=== PATIENT | female | born 1975 | race Hispanic/Latino ===

== ENCOUNTER 2018-03-25 13:46 | Emergency (ER) | payer OTHER ==
[2018-03-25 15:12] LABS: Absolute Lymphocytes (CBC) 2.5 K/uL (0.7-4.9); Absolute Monocytes 0.7 K/uL (0.1-1.3); Absolute Neutrophil 6.6 K/uL (1.8-8.0); Basophils % 0.5 % (0-1.3); Eosinophils % 1.8 % (0-4.4); Hematocrit 41.4 % (36.0-45.0); Lymphocytes % 25.2 % (15.3-44.8); MCH 30.2 pg (27.0-35.0); MCV 89.5 fL (80-100); MPV 7.3 fL (7.6-11.3); Monocytes % 6.6 % (3.3-12.3); RBC Red Blood Cell Count 4.62 M/uL (3.86-4.86)
[2018-03-25 15:22] LABS: Albumin 4.2 g/dL (3.4-5.0); Bilirubin Direct 0.2 mg/dL (0-0.2); Bilirubin Total 0.8 mg/dL (0.2-1.0); Potassium 3.8 mmol/L (3.5-5.1); Protein, Total 8.4 g/dL (6.4-8.2)
[2018-03-25 15:24] LABS: Urine Blood NEGATIVE (NEG); Urine Glucose NEGATIVE (NEG); Urine Protein NEGATIVE (NEG)
--- NOTE | 2018-03-25 17:24 | RAD REPORT ---
EXAM DESCRIPTION: CTAbdomen Pelvis W Contrast - 03/25/2018 5:14 pm CLINICAL HISTORY: Abdominal pain. RLQ pain;Abd pain COMPARISON: No comparisons TECHNIQUE: Biphasic CT imaging of the abdomen and pelvis was performed with 100 ml non-ionic IV cont rast. All CT scans are performed using dose optimization technique as appropriate and may include automated exposure control or mA/KV adjustment according to patient size. FINDINGS: The lung bases are clear.Small hiatal hernia. The liver, spleen, pancreas, adrenal glands and kidneys are within normal limits. No bowel obstruction, free air, free fluid or abscess. The appendix is normal. No evidence of signi ficant lymphadenopathy. No suspicious bony findings. IMPRESSION: No acute intra-abdominal or pelvic finding.
--- NOTE | 2018-03-25 17:53 | EDPHYS ---
Physician Documentation [facility] Name: Claudine Lerner Age: 42 yrs Sex: Female : 1975 Arrival Date: 03/25/2018 Time: 13:49 Bed 3 Private MD: None, None ED Physician Edil Louise HPI: 03/25 15:07 This 42 yrs old Female presents to ER via Ambulatory with complaints of rn Abdominal Pain. 15:07 The patient presents with abdominal pain right lower quadrant. Onset: The rn symptoms/episode began/occurred today. The symptoms do not radiate. Associated signs and symptoms: Pertinent positives: nausea, Pertinent negatives: blood in stools, chest pain, dysuria, fever, shortness of breath, vaginal discharge, vomiting, vomiting blood. Modifying factors: The symptoms are alleviated by nothing, the symptoms are aggravated by movement, touching the area. Severity of pain: At its worst the pain was moderate in the emergency department the pain has improved. The patient has not experienced similar symptoms in the past. REports acute onset RLQ pain, began today, moderate when started, improved now, + nausea, no fever/diarrhea, hurts to move and change position.. 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 - Social history:: Smoking status: Patient/guardian denies using tobacco. - Ebola Screening: : No symptoms or risks identified at this time. - Family history:: not pertinent. - Hospitalizations: : No recent hospitalization is reported. ROS: 15:07 Constitutional: Negative for fever, chills, and weight loss, Eyes: Negative for injury, rn pain, redness, and discharge, Neck: Negative for injury, pain, and swelling, Cardiovascular: Negative for chest pain, palpitations, and edema, Respiratory: Negative for shortness of breath, cough, wheezing, and pleuritic chest pain, Abdomen/GI: + abdominal pain and nausea Back: Negative for injury and pain, : Negative for injury, bleeding, discharge, and swelling, MS/Extremity: Negative for injury and deformity, Skin: Negative for injury, rash, and discoloration, Neuro: Negative for headache, weakness, numbness, tingling, and seizure. Exam: 15:07 Constitutional: This is a well developed, well nourished patient who is awake, alert, rn and in no acute distress. Head/Face: Normocephalic, atraumatic. Eyes: Pupils equal round and reactive to light, extra-ocular motions intact. Lids and lashes normal. Conjunctiva and sclera are non-icteric and not injected. Cornea within normal limits. Periorbital areas with no swelling, redness, or edema. ENT: MMM Abdomen/GI: soft, mild RLQ and suprapubic tenderness, no rebound Back: No spinal tenderness. No costovertebral tenderness. Full range of motion. Skin: Warm, dry with normal turgor. Normal color with no rashes, no lesions, and no evidence of cellulitis. MS/ Extremity: Pulses equal, no cyanosis. Neurovascular intact. Full, normal range of motion. Equal circumference. Neuro: Awake and alert, GCS 15, oriented to person, place, time, and situation. Cranial nerves II-XII grossly intact. Motor strength 5/5 in all extremities. Sensory grossly intact. Cerebellar exam normal. Normal gait. Vital Signs: 14:22 BP 131 / 91; Pulse 73; Resp 16 S; Temp 97.8(TE); Pulse Ox 96% on R/A; Weight 79.38 kg aa5 (R); Height 5 ft. 2 in. (157.48 cm) (R); Pain 2/10; 15:30 BP 108 / 82; Pulse 63; Resp 16 S; Pulse Ox 100% on R/A; jl7 14:22 Body Mass Index 32.01 (79.38 kg, 157.48 cm) aa5 MDM: 14:27 Patient medically screened. rn 17:52 Differential diagnosis: appendicitis, diverticulitis, non-specific abd pain, rn Ureterolithiasis, urinary tract infection. Data reviewed: vital signs, nurses notes, lab test result(s), radiologic studies, CT scan, and as a result, I will discharge patient. Counseling: I had a detailed discussion with the patient and/or guardian regarding: the historical points, exam findings, and any diagnostic results supporting the discharge/admit diagnosis, lab results, radiology results, the need for outpatient follow up, to return to the emergency department if symptoms worsen or persist or if there are any questions or concerns that arise at home. Special discussion: Based on the patient's Hx, exam, and Dx evaluation, there is no indication for emergent surgery or inpatient Tx. It is understood by the patient/guardian that if the Sx's persist or worsen they need to return immediately for re-evaluation. I discussed with the patient/guardian in detail that at this point there is no indication for admission to the hospital. It is understood, however, that if the symptoms persist or worsen the patient needs to return immediately for re-evaluation. 03/25 14:34 Order name: Basic Metabolic Panel; Complete Time: 15:31 rn 03/25 14:34 Order name: CBC with Diff; Complete Time: 15:31 rn 03/25 14:34 Order name: Creatinine for Radiology; Complete Time: 15:31 rn 03/25 14:34 Order name: Hepatic Function; Complete Time: 15:31 rn 03/25 14:34 Order name: Lipase; Complete Time: 15:31 rn 03/25 15:19 Order name: Urine Dipstick--Ancillary (enter results); Complete Time: 15:31 eb 03/25 14:34 Order name: IV Saline Lock; Complete Time: 14:52 rn 03/25 14:34 Order name: Labs collected and sent; Complete Time: 14:52 rn 03/25 14:34 Order name: CT Abd/Pelvis - W/Contrast; Complete Time: 17:30 rn 03/25 14:50 Order name: Urine Dipstick-Ancillary (obtain specimen); Complete Time: 14:50 sv 03/25 14:50 Order name: Urine Test (obtain specimen); Complete Time: 14:50 sv 03/25 15:19 Order name: Urine --Ancillary (enter results); Complete Time: 15:31 eb Administered Medications: No medications were administered Disposition: 03/25/18 17:52 Discharged to Home. Impression: Lower abdominal pain, unspecified. - Condition is Stable. - Discharge Instructions: Abdominal Pain, Adult. - Medication Reconciliation Form, Thank You Letter, Antibiotic Education, Prescription Opioid Use form. - Follow up: Private Physician; When: As needed; Reason: Recheck today's complaints, Re-evaluation by your physician. - Problem is new. - Symptoms have improved. Signatures: Dispatcher [employer] EDMS Jennifer, Amanda, RN Abraham Guzman RN Edil Mike MD MD rn Calderon, Audri, RN RN aa5 Corrections: (The following items were deleted from the chart) 15:09 15:07 Constitutional: Negative for fever, chills, and weight loss, Eyes: Negative for rn injury, pain, redness, and discharge, Neck: Negative for injury, pain, and swelling, Cardiovascular: Negative for chest pain, palpitations, and edema, Respiratory: Negative for shortness of breath, cough, wheezing, and pleuritic chest pain, Abdomen/GI: + abdominal pain and nausea MS/Extremity: Negative for injury and deformity, Skin: Negative for injury, rash, and discoloration, Neuro: Negative for headache, weakness, numbness, tingling, and seizure, rn 17:59 17:52 03/25/2018 17:52 Discharged to Home. Impression: Lower abdominal pain, sg unspecified. Condition is Stable. Forms are Medication Reconciliation Form, Thank You Letter, Antibiotic Education, Prescription Opioid Use. Follow up: Private Physician; When: As needed; Reason: Recheck today's complaints, Re-evaluation by your physician. Problem is new. Symptoms have improved. rn
--- NOTE | 2018-03-25 17:53 | ER ---
Nurse's Notes [facility] Name: Claudine Lerner Age: 42 yrs Sex: Female : 1975 Arrival Date: 03/25/2018 Time: 13:49 Bed 3 Private MD: None, None Diagnosis: Lower abdominal pain, unspecified Presentation: 03/25 14:21 Presenting complaint: Patient states: RLQ pain that began today around 1230. Pt denies aa5 N/V/D. Pt states "the pain started after I broke out in a cold sweat". 14:21 Transition of care: patient was not received from another setting of care. Onset of aa5 symptoms was March 25, 2018. Risk Assessment: Do you want to hurt yourself or someone else? Patient reports no desire to harm self or others. Initial Sepsis Screen: Does the patient meet any 2 criteria? No. Patient's initial sepsis screen is negative. Does the patient have a suspected source of infection? No. Patient's initial sepsis screen is negative. Care prior to arrival: None. 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 - Social history:: Smoking status: Patient/guardian denies using tobacco. - Ebola Screening: : No symptoms or risks identified at this time. - Family history:: not pertinent. - Hospitalizations: : No recent hospitalization is reported. Screenin:30 Abuse screen: Denies threats or abuse. Denies injuries from another. Nutritional jl7 screening: No deficits noted. Tuberculosis screening: No symptoms or risk factors identified. Fall Risk IV access (20 points). Assessment: 14:45 General: Appears in no apparent distress. uncomfortable, Behavior is calm, cooperative, jl7 appropriate for age. Pain: Complains of pain in right lower quadrant Pain does not radiate. Pain currently is 2 out of 10 on a pain scale. at worst was 8 out of 10 on a pain scale. Quality of pain is described as pressure, Is intermittent. Neuro: Level of Consciousness is awake, alert, obeys commands, Oriented to person, place, time, situation. Cardiovascular: Patient's skin is warm and dry. Respiratory: Airway is patent Respiratory effort is even, unlabored, Respiratory pattern is regular, symmetrical. GI: Bowel sounds present X 4 quads. hyperactive in right upper quadrant, left upper quadrant and left lower quadrant Abd is soft and non tender in right upper quadrant, left upper quadrant and left lower quadrant Abdomen is tender to palpation in right lower quadrant. : No signs and/or symptoms were reported regarding the genitourinary system. Denies burning with urination. Derm: Skin is pink, warm \\T\\ dry. 16:00 Reassessment: Patient appears in no apparent distress at this time. No changes from jl7 previously documented assessment. Patient and/or family updated on plan of care and expected duration. Pain level reassessed. Patient is alert, oriented x 3, equal unlabored respirations, skin warm/dry/pink. 17:00 Reassessment: No changes from previously documented assessment. Patient and/or family jl7 updated on plan of care and expected duration. Pain level reassessed. Patient is alert, oriented x 3, equal unlabored respirations, skin warm/dry/pink. Vital Signs: 14:22 BP 131 / 91; Pulse 73; Resp 16 S; Temp 97.8(TE); Pulse Ox 96% on R/A; Weight 79.38 kg aa5 (R); Height 5 ft. 2 in. (157.48 cm) (R); Pain 2/10; 15:30 BP 108 / 82; Pulse 63; Resp 16 S; Pulse Ox 100% on R/A; jl7 14:22 Body Mass Index 32.01 (79.38 kg, 157.48 cm) aa5 ED Course: 13:49 Patient arrived in ED. mr 13:50 None, None is Private Physician. mr 14:21 Arm band placed on Patient placed in an exam room, on a stretcher. aa5 14:27 Edil Louise MD is Attending Physician. rn 14:37 Triage completed. aa5 14:41 Rosie Soto RN is Primary Nurse. jl7 14:45 Initial lab(s) drawn, by ia, sent to lab. Urine collected: clean catch specimen, clear. jl7 Inserted saline lock: 20 gauge in right antecubital area, using aseptic technique. Blood collected. 15:30 Patient has correct armband on for positive identification. Bed in low position. Call jl7 light in reach. Side rails up X 1. Pulse ox on. NIBP on. Warm blanket given. 17:[address] mw3 17:14 CT completed. Patient tolerated procedure well. Patient moved back from CT. mw3 17:16 CT Abd/Pelvis - W/Contrast In Process Unspecified. EDMS Administered Medications: No medications were administered Outcome: 17:52 Discharge ordered by . rn 17:59 Patient left the ED. sg Signatures: Dispatcher [employer] EDMS Abraham Looney RN RN sg Sherrie Cabrera mr Edil Louise MD MD rn Calderon, Audri RN RN aa5 Rosie Soto RN RN jl7 Niya Capps mw3
== END 2018-03-25 17:59 | disposition home or self-care (01) ==
LOC: ER 13:46
DX: R10.31 Right lower quadrant pain (principal)
CPT/HCPCS: 36415; 74177; 80048; 80076; 81003; 81025; 83690; 85025; 99284; Q9967

== ENCOUNTER 2018-08-20 07:15 | Day surgery (SDC) | payer OTHER ==
--- NOTE | 2018-08-17 17:15 | EKG ---
Test Date: 2018-08-17 Test Time: 12:28:03 Cremator: GUALBERTO MEASUREMENT RESULTS: Intervals: Rate: 60 NE: 188 QRSD: 102 QT: 412 QTc: 412 [place]: P: 31 NE: 188 QRS: -22 T: -27 INTERPRETIVE STATEMENTS: Normal sinus rhythm T wave abnormality, consider anterior ischemia Abnormal ECG No previous ECG available for comparison Electronically Signed On 08-17-18 17:13:54 CDT by Jose D Solis
--- OUTSIDE RECORDS SUMMARY | 2018-08-20 07:20 | XMS REPORT ---
:1975 [facility] Address [address] [place] [address] Dr. Lopez [address] [place] [id number] Care Team Providers Name Role Phone Unavailable Unavailable Unavailable Problems This patient has no known problems. Allergies, Adverse Reactions, Alerts This patient has no known allergies or adverse reactions. Medications This patient has no known medications.
[2018-08-20] MEDS ORDERED: Ringers Lactate 1,000 ML IV ONE (07:53)
[2018-08-20] MEDS ORDERED: BUPIVACA 0.25%/EPI 0.0005% MDV 50 ML VIAL ONE (08:41)
[2018-08-20] MEDS: BUPIVACA 0.5%/EPI 0.0005%/PF 30 ML VIAL ONE ×2 (09:24→10:13)
[2018-08-20] MEDS ORDERED: LIDOCAINE 1% MPF 5 ML VIAL ONE (09:32)
[2018-08-20] MEDS ORDERED: FENTANYL CITR 100 MCG/2 ML ONE (09:32)
[2018-08-20] MEDS ORDERED: ROCURONIUM 50 MG/5 ML VIAL IV ONE (09:32)
[2018-08-20] MEDS ORDERED: MIDAZOLAM HCL 2 MG/2 ML INJ ONE ×2 (09:32→10:40)
[2018-08-20] MEDS ORDERED: PROPOFOL 200 MG/20 ML VIAL IV ONE (09:32)
[2018-08-20] MEDS ORDERED: DEXAMETHASONE 10 MG/ML VIAL ONE (10:02)
[2018-08-20] MEDS ORDERED: ONDANSETRON 4 MG/2 ML VIAL ONE ×2 (10:04→10:12)
[2018-08-20] MEDS ORDERED: GLYCOPYRROLATE 0.2 MG/ML SYR ONE ×2 (10:11→10:12)
[2018-08-20] MEDS ORDERED: NEOSTIGMINE 1 MG/ML -10 ML VIAL ONE (10:12)
[2018-08-20] MEDS ORDERED: KETOROLAC 30 MG/ML INJ ONE (10:12)
--- NOTE | 2018-08-20 10:19 | P.OP ---
Pre-Op Diagnosis: Recurrent acute tonsillitis, Chronic tonsillitis Post-Op Diagnosis: Recurrent acute tonsillitis, Chronic tonsillitis Procedure: Tonsillectomy Anesthesia: Other (GA via ETT) Fluids/ Blood products: Other (crystalloid 350ml) Estimated blood loss: Other (5ml) Specimen: Other (Both tonsils) Complications: None Implants: None Indication: Patient persistent issues in spite of good medical management. Details of Operation: The patient was brought to the operating room and placed under general anesthesia via endotracheal tube. The head of bed was turned 90 degrees. A Shoulder roll was placed and the neck extended. A head drape was applied. The McIvor mouth gag was placed and suspended from the Bro stand. The oxygen concentrate was confirmed with the automatic line set up mechanic and was less than forty percent. Weight-based dexamethasone was administered by the automatic line set up mechanic. The soft palate was palpated and there was no submucous cleft. A red rubber catheter was placed in the nose and secured to retract the soft palate. The tonsils were noted to be chronically inflammed and submucosa. The exposed of the inferior aspect of the tonsil was difficult due to the patient's small jaw. The left tonsil was grasped with a straight Allis clamp. The bovie electocautery was used to incision the mucosa over the anterior pillar and identify the tonsillar capsule. The tonsil was dissected using cautery and blunt dissection until free from soft tissue attachments. A tonsil ball was placed to aid hemostasis. The right tonsil was removed in a similar manner. The laryngeal mirror was used to visualize the nasopharynx. The adenoid size was minimal. The adenoids were not removed. Hemostasis was achieved using packing and cautery as needed. Blood loss was minimal. All packing was removed. The tonsillar fossae were injected with 0.5% Marcaine with epinephrine. A total of 2 mL was used. A Salum sump orogastric tube was used to decompress the stomach. The red rubber catheter was removed and used to suction the nasopharynx and nasal cavity. The mouth gag was removed; there was no evidence of injury to the lips, or teeth. There were some small superfical lacerations of the right tongue but bleeding was minimal and no repair was indicated. The mandible was mobile. Disposition: The patient was then awakened from anesthesia and taken to the recovery room in stable condition.
[2018-08-20] MEDS: MEPERIDINE HCL 25 MG/0.5 ML ONE ×2 (10:33→10:38)
[2018-08-20] MEDS: HYDROMORPHONE HCL 1 MG/ML INJ ONE ×2 (10:45→10:50)
== END 2018-08-20 11:55 | disposition home or self-care (01) ==
LOC: OR 07:15
PROVIDERS: ATTEND Otolaryngology
PROC: 0CTPXZZ Resection of Tonsils, External Approach (ICD-10-PCS; principal; 2018-08-20 09:15)
DX: J35.01 Chronic tonsillitis (principal); K21.9 Gastro-esophageal reflux disease without esophagitis; F32.9 Major depressive disorder, single episode, unspecified; F41.9 Anxiety disorder, unspecified; M79.7 Fibromyalgia; Z79.899 Other long term (current) drug therapy
CPT/HCPCS: 81025; 88304; 93005; J1100; J1170; J2175; J2250; J2405; J2704; J2710; J3010

== ENCOUNTER 2019-06-14 | Emergency (ER) | payer OTHER ==
--- OUTSIDE RECORDS SUMMARY | 2019-06-14 12:07 | XMS REPORT ---
:1975 [facility] Address [address] [place] [address] Dr. Lopez [address] [place] [id number] Care Team Providers Name Role Phone Unavailable Unavailable Unavailable Problems This patient has no known problems. Allergies, Adverse Reactions, Alerts This patient has no known allergies or adverse reactions. Medications This patient has no known medications.
--- NOTE | 2019-06-14 12:31 | ER ---
Nurse's Notes [facility] Name: Claudine Lerner Age: 44 yrs Sex: Female : 1975 Arrival Date: 06/14/2019 Time: 12:07 Bed 30 Private MD: Crispin Boggs E Diagnosis: Foreign body in right ear Presentation: 06/14 12:08 Presenting complaint: Patient states: foreign body in the right ear, got a piece of sv earring stuck in her ear. Transition of care: patient was not received from another setting of care. Onset of symptoms was June 13, 2019. Care prior to arrival: None. 12:08 Method Of Arrival: Ambulatory sv 12:08 Acuity: GUNNER 4 sv 12:28 Risk Assessment: Do you want to hurt yourself or someone else? Patient reports no mg2 desire to harm self or others. Initial Sepsis Screen: Does the patient meet any 2 criteria? No. Patient's initial sepsis screen is negative. Does the patient have a suspected source of infection? No. Patient's initial sepsis screen is negative. 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 - Social history:: Smoking status: unknown. - Ebola Screening: : No symptoms or risks identified at this time. Screenin:26 Abuse screen: Denies threats or abuse. Denies injuries from another. Nutritional mg2 screening: On. Tuberculosis screening: No symptoms or risk factors identified. Fall Risk None identified. Assessment: 12:25 General: Appears in no apparent distress. comfortable, Behavior is calm, cooperative. mg2 Pain: Complains of pain in right ear. Neuro: Level of Consciousness is awake, alert, obeys commands, Oriented to person, place, time, situation. Cardiovascular: Capillary refill < 3 seconds. Respiratory: Airway is patent Respiratory effort is even, unlabored, Respiratory pattern is regular, symmetrical. GI: : No signs and/or symptoms were reported regarding the genitourinary system. EENT: Ear canal w/ foreign body noted from right ear. Derm: No signs and/or symptoms reported regarding the dermatologic system. Musculoskeletal: No signs and/or symptoms reported regarding the musculoskeletal system. Vital Signs: 12:09 BP 114 / 79; Pulse 82; Resp 16; Temp 98; Pulse Ox 97% ; Weight 90.72 kg; Height 5 ft. 2 sv in. (157.48 cm); 12:09 Body Mass Index 36.58 (90.72 kg, 157.48 cm) sv ED Course: 12:07 Patient arrived in ED. ag5 12:07 Crispin Boggs MD is Private Physician. ag5 12:09 Triage completed. sv 12:10 Arm band placed on. sv 12:11 Francy Dan [facility]C [facility]. kb 12:11 Edil Louise MD is Attending Physician. kb 12:25 Cody Chowdhury, RN is Primary Nurse. mg2 12:26 Patient has correct armband on for positive identification. mg2 12:26 Assist provider with foreign body removal Patient tolerated poorly. patient unable to mg2 tolerate the pain while removing the foreign body. unsuccessful. to be referred to ENT specialist. Patient did not have IV access during this emergency room visit. 12:30 Amanda Vernon MD is Referral Physician. kb Administered Medications: No medications were administered Outcome: 12:30 Discharge ordered by MD. kb 12:34 Discharged to home ambulatory, with family, with friend. mg2 12:34 Condition: stable 12:34 Discharge instructions given to patient, family, Instructed on discharge instructions, follow up and referral plans. Demonstrated understanding of instructions, follow-up care. 12:35 Patient left the ED. mg2 Signatures: Francy Dan FNP-C FNP-Amanda Pham RN RN Cody Chowdhury RN RN [facility] [place] Espinoza ag5
--- NOTE | 2019-06-14 12:31 | EDPHYS ---
Physician Documentation [facility] Name: Claudine Lerner Age: 44 yrs Sex: Female : 1975 Arrival Date: 06/14/2019 Time: 12:07 Bed 30 Private MD: Crispin Boggs E ED Physician Edil Louise HPI: 06/14 12:30 This 44 yrs old Female presents to ER via Ambulatory with complaints of kb Foreign Body In Ear. 12:30 The patient or guardian reports the patient has a suspected foreign body, of the ear, kb on the right. The reported likely foreign body is clear, plastic earring back. Onset: The symptoms/episode began/occurred yesterday. Current symptoms: foreign body sensation. Treatment Prior to Arrival: tried to remove, and pushed further in. The patient has not experienced similar symptoms in the past. The patient has not recently seen a physician. Pt reports an earring back fell into right ear yesterday. States they tried to remove it last night and were unable. Believes they just pushed it further into the ear. . 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 - Social history:: Smoking status: unknown. - Ebola Screening: : No symptoms or risks identified at this time. ROS: 12:25 Constitutional: Negative for fever, chills, and weight loss, Neck: Negative for injury, kb pain, and swelling, Cardiovascular: Negative for chest pain, palpitations, and edema, Respiratory: Negative for shortness of breath, cough, wheezing, and pleuritic chest pain, Abdomen/GI: Negative for abdominal pain, nausea, vomiting, diarrhea, and constipation, MS/Extremity: Negative for injury and deformity, Skin: Negative for injury, rash, and discoloration, Neuro: Negative for headache, weakness, numbness, tingling, and seizure. 12:25 ENT: Positive for ear pain, foreign body sensation. Exam: 12:26 Constitutional: This is a well developed, well nourished patient who is awake, alert, kb and in no acute distress. Head/Face: Normocephalic, atraumatic. Neck: Trachea midline, no thyromegaly or masses palpated, and no cervical lymphadenopathy. Supple, full range of motion without nuchal rigidity, or vertebral point tenderness. No Meningismus. Chest/axilla: Normal chest wall appearance and motion. Nontender with no deformity. No lesions are appreciated. Cardiovascular: Regular rate and rhythm with a normal S1 and S2. No gallops, murmurs, or rubs. Normal PMI, no JVD. No pulse deficits. Respiratory: Lungs have equal breath sounds bilaterally, clear to auscultation and percussion. No rales, rhonchi or wheezes noted. No increased work of breathing, no retractions or nasal flaring. Abdomen/GI: Soft, non-tender, with normal bowel sounds. No distension or tympany. No guarding or rebound. No evidence of tenderness throughout. Skin: Warm, dry with normal turgor. Normal color with no rashes, no lesions, and no evidence of cellulitis. MS/ Extremity: Pulses equal, no cyanosis. Neurovascular intact. Full, normal range of motion. Neuro: Awake and alert, GCS 15, oriented to person, place, time, and situation. Cranial nerves II-XII grossly intact. Motor strength 5/5 in all extremities. Sensory grossly intact. Cerebellar exam normal. Normal gait. 12:26 ENT: External ear(s): are unremarkable, Ear canal(s): foreign body, a piece of jewelry, in the right external ear canal, redness, swelling, irritation to lower half of ear canal where earring back is sitting. , TM's: are normal. Vital Signs: 12:09 BP 114 / 79; Pulse 82; Resp 16; Temp 98; Pulse Ox 97% ; Weight 90.72 kg; Height 5 ft. 2 sv in. (157.48 cm); 12:09 Body Mass Index 36.58 (90.72 kg, 157.48 cm) sv MDM: 12:11 Patient medically screened. kb 12:24 Data reviewed: vital signs, nurses notes. Data interpreted: Pulse oximetry: on room air kb is 97 %. Interpretation: normal. Counseling: I had a detailed discussion with the patient and/or guardian regarding: the historical points, exam findings, and any diagnostic results supporting the discharge/admit diagnosis, the need for outpatient follow up, an ENT specialist, to return to the emergency department if symptoms worsen or persist or if there are any questions or concerns that arise at home. ED course: Pt will not tolerate foreign body removal. Pt moves out of reach each time FB is touched. Will refer to ENT for FB removal. Administered Medications: No medications were administered Disposition: 17:14 Co-signature as Attending Physician, Edil Louise MD. rn Disposition: 06/14/19 12:30 Discharged to Home. Impression: Foreign body in right ear. - Condition is Stable. - Discharge Instructions: Ear Foreign Body, [id number]. - Medication Reconciliation Form, Thank You Letter, Antibiotic Education, Prescription Opioid Use form. - Follow up: Emergency Department; When: As needed; Reason: Worsening of condition. Follow up: Amanda Vernon MD; When: 1 - 2 days; Reason: Recheck today's complaints. Signatures: Francy Dan, MOLDING MANAGER-C MOLDING MANAGER-Ckb Amanda Rodriguez, RN RN sv Edil Louise MD MD rn Gardose, Michele, RN RN mg2 Corrections: (The following items were deleted from the chart) 12:33 12:26 ENT: External ear(s): are unremarkable, Ear canal(s): foreign body, a piece of kb jewelry, in the right external ear canal, TM's: are normal, kb 12:35 12:30 06/14/2019 12:30 Discharged to Home. Impression: Foreign body in right ear. mg2 Condition is Stable. Forms are Medication Reconciliation Form, Thank You Letter, Antibiotic Education, Prescription Opioid Use. Follow up: Emergency Department; When: As needed; Reason: Worsening of condition. Follow up: Amanda Vernon; When: 1 - 2 days; Reason: Recheck today's complaints. kb
== END 2019-06-14 12:35 | disposition home or self-care (01) ==
CPT/HCPCS: 99283

== ENCOUNTER 2019-09-16 10:45 | Emergency (ER) | payer OTHER ==
--- OUTSIDE RECORDS SUMMARY | 2019-09-16 10:47 | XMS REPORT ---
:1975 Author Organization [facility] t Address [address] [place] [address] Dr. Lopez [address] [place] [id number] Care Team Providers Name Role Phone Unavailable Unavailable Unavailable Problems This patient has no known problems. Allergies, Adverse Reactions, Alerts This patient has no known allergies or adverse reactions. Medications This patient has no known medications.
--- NOTE | 2019-09-16 12:04 | EDPHYS ---
Physician Documentation [facility] Name: Claudine Lerner Age: 44 yrs Sex: Female : 1975 Arrival Date: 09/16/2019 Time: 10:46 Bed 24 Private MD: Crispin Boggs E ED Physician George Sommers HPI: 09/15 11:40 This 44 yrs old Female presents to ER via Ambulatory with complaints of Ankle jr8 injury. 11:40 The patient presents with decreased range of motion, pain, swelling, tenderness. The jr8 complaints affect the right ankle. Context: The problem was sustained at home, outdoors, resulted from twisting of the extremity. Onset: The symptoms/episode began/occurred acutely, yesterday, last night. Modifying factors: The symptoms are alleviated by nothing. the symptoms are aggravated by movement, weight bearing. Associated signs and symptoms: The patient has no apparent associated signs or symptoms. Severity of symptoms: At their worst the symptoms were moderate, in the emergency department the symptoms are unchanged. The patient has not experienced similar symptoms in the past. The patient has not recently seen a physician. Patient stated that she was mowing and tripped in pot hole twisting right ankle. Has not been able to bear weight on ankle since incident . 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 - Social history:: Smoking status: Patient denies any tobacco usage or history of. ROS: 11:40 Eyes: Negative for injury, pain, redness, and discharge, ENT: Negative for injury, jr8 pain, and discharge, Neck: Negative for injury, pain, and swelling, Cardiovascular: Negative for chest pain, palpitations, and edema, Respiratory: Negative for shortness of breath, cough, wheezing, and pleuritic chest pain, Abdomen/GI: Negative for abdominal pain, nausea, vomiting, diarrhea, and constipation, Back: Negative for injury and pain, Skin: Negative for injury, rash, and discoloration, Neuro: Negative for headache, weakness, numbness, tingling, and seizure. 11:40 MS/extremity: Positive for decreased range of motion, pain, swelling, tenderness, of the right ankle. Exam: 11:40 Cardiovascular: Regular rate and rhythm with a normal S1 and S2. No gallops, murmurs, jr8 or rubs. Normal PMI, no JVD. No pulse deficits. Respiratory: Lungs have equal breath sounds bilaterally, clear to auscultation and percussion. No rales, rhonchi or wheezes noted. No increased work of breathing, no retractions or nasal flaring. Abdomen/GI: Soft, non-tender, with normal bowel sounds. No distension or tympany. No guarding or rebound. No evidence of tenderness throughout. Back: No spinal tenderness. No costovertebral tenderness. Full range of motion. Skin: Warm, dry with normal turgor. Normal color with no rashes, no lesions, and no evidence of cellulitis. Neuro: Awake and alert, GCS 15, oriented to person, place, time, and situation. Cranial nerves II-XII grossly intact. Motor strength 5/5 in all extremities. Sensory grossly intact. Cerebellar exam normal. Normal gait. 11:40 Musculoskeletal/extremity: Extremities: grossly normal except: noted in the right ankle: Patient has swelling over the lateral malleolus. No abrasion or laceration. Bruising noted. Decreased ROM secondary to pain. Normal sensation present with 2+ DP and PT pulses bilaterally . Vital Signs: 10:57 Pulse 81; Resp 16; Temp 97.2; Pulse Ox 98% on R/A; Weight 90.72 kg; Height 5 ft. 2 in. iw (157.48 cm); Pain 7/10; 10:57 Body Mass Index 36.58 (90.72 kg, 157.48 cm) iw MDM: 11:08 Patient medically screened. jr8 12:01 Data reviewed: vital signs, nurses notes, radiologic studies, plain films. Data jr8 interpreted: Pulse oximetry: on room air is 98 %. Interpretation: normal. Counseling: I had a detailed discussion with the patient and/or guardian regarding: the historical points, exam findings, and any diagnostic results supporting the discharge/admit diagnosis, radiology results, the need for outpatient follow up, a orthopedic surgeon, to return to the emergency department if symptoms worsen or persist or if there are any questions or concerns that arise at home. ED course: No acute gross fracture noted on xray. Patient has crutches. Will be jose david wrapped and put on NSAID. No weight bear for 1 week and then touch as tolerated after that. If worse or no better to f/u with ortho for evaluation and repeat imaging. Patient good with this . 09/15 11:21 Order name: XRAY Ankle RIGHT 3 view; Complete Time: 12:14 jr8 09/15 12:01 Order name: Jose David wrap-joint; Complete Time: 12:18 jr8 Administered Medications: No medications were administered Disposition: 15:30 Co-signature as Attending Physician, George Sommers DO I agree with the assessment and ms3 plan of care. Attestation: The patient's history, exam findings, diagnostics, and a summary of any interventions or procedures was reviewed in detail with Dick GARCIA. Disposition: 09/16/19 12:03 Discharged to Home. Impression: Sprain of ankle. - Condition is Stable. - Discharge Instructions: Ankle Sprain. - Prescriptions for Ibuprofen 800 mg Oral Tablet - take 1 tablet by ORAL route every 12 hours As needed take with food; 20 tablet. - Medication Reconciliation Form, Thank You Letter, Antibiotic Education, Prescription Opioid Use form. - Follow up: Socrates Pop MD; When: 1 week; Reason: Recheck today's complaints, Continuance of care, Re-evaluation by your physician. - Problem is new. - Symptoms have improved. Signatures: Dispatcher [employer] EDChristie Austin RN RN iw Roszak, Josh, PA PA jr8 George Sommers DO DO ms3 Corrections: (The following items were deleted from the chart) 12:38 12:03 09/16/2019 12:03 Discharged to Home. Impression: Sprain of ankle. Condition is iw Stable. Forms are Medication Reconciliation Form, Thank You Letter, Antibiotic Education, Prescription Opioid Use. Follow up: Socrates Pop; When: 1 week; Reason: Recheck today's complaints, Continuance of care, Re-evaluation by your physician. Problem is new. Symptoms have improved. jr8
--- NOTE | 2019-09-16 12:04 | ER ---
Nurse's Notes [facility] Name: Claudine Lerner Age: 44 yrs Sex: Female : 1975 Arrival Date: 09/16/2019 Time: 10:46 Bed 24 Private MD: Crispin Boggs E Diagnosis: Sprain of ankle Presentation: 09/15 10:57 Chief complaint: Patient states: rolled right ankle yesterday while doing yard work, iw was able to walk on it yesterday but not this morning. Coronavirus screen: Proceed with normal triage. Patient denies a cough. Patient denies shortness of breath or difficulty breathing. Patient denies measured and/or subjective temperature greater than 100.4F prior to today's visit. Patient denies travel on a cruise ship or to a country the [facility] currently lists as an affected area. Patient denies contact with known and/or suspected case of COVID-19. Ebola Screen: Patient negative for fever greater than or equal to 101.5 degrees Fahrenheit, and additional compatible Ebola Virus Disease symptoms Patient denies exposure to infectious person. Patient denies travel to an Ebola-affected area in the 21 days before illness onset. No symptoms or risks identified at this time. Initial Sepsis Screen: Does the patient meet any 2 criteria? No. Patient's initial sepsis screen is negative. Does the patient have a suspected source of infection? No. Patient's initial sepsis screen is negative. Risk Assessment: Do you want to hurt yourself or someone else? Patient reports no desire to harm self or others. Onset of symptoms was September 15, 2019. 10:57 Method Of Arrival: Ambulatory iw 10:57 Acuity: GUNNER 4 iw Triage Assessment: 12:00 General: Appears in no apparent distress. iw 12:30 General: Behavior is calm. 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 - Social history:: Smoking status: Patient denies any tobacco usage or history of. Screenin:35 Abuse screen: Denies threats or abuse. Denies injuries from another. Nutritional iw screening: No deficits noted. Tuberculosis screening: No symptoms or risk factors identified. Fall Risk Fall in past 12 months (25 points). Assessment: 11:30 General: Behavior is calm, cooperative. Pain: Complains of pain in right ankle. Neuro: iw Level of Consciousness is awake, alert, obeys commands, Oriented to person, place, time, situation. Respiratory: Respiratory effort is even, unlabored, Respiratory pattern is regular. Derm: Skin is intact, is healthy with good turgor. Musculoskeletal: Range of motion: limited in right ankle. Vital Signs: 10:57 Pulse 81; Resp 16; Temp 97.2; Pulse Ox 98% on R/A; Weight 90.72 kg; Height 5 ft. 2 in. iw (157.48 cm); Pain 7/10; 10:57 Body Mass Index 36.58 (90.72 kg, 157.48 cm) iw ED Course: 10:46 Patient arrived in ED. am2 10:46 Crispin Boggs MD is Private Physician. am2 10:58 Triage completed. iw 10:59 Arm band placed on. iw 11:08 Dick Springer PA is PHCP. jr8 11:08 George Sommers DO is Attending Physician. jr8 11:14 Christie Shankar, ALIYAH is Primary Nurse. iw 11:55 XRAY Ankle RIGHT 3 view In Process Unspecified. EDMS 12:03 Socrates Pop MD is Referral Physician. jr8 12:18 Jose David wrap to right ankle. jp3 12:30 Patient has correct armband on for positive identification. iw 12:37 No provider procedures requiring assistance completed. Patient did not have IV access iw during this emergency room visit. Administered Medications: No medications were administered Outcome: 12:03 Discharge ordered by . jr8 12:37 Discharged to home via wheelchair. iw 12:37 Condition: good 12:37 Discharge instructions given to patient, Instructed on discharge instructions, follow up and referral plans. medication usage, Demonstrated understanding of instructions, follow-up care, medications, Prescriptions given X 1. 12:38 Patient left the ED. iw Signatures: Dispatcher [employer] EDMS Christie Shankar RN RN iw Dick Springer PA PA jr8 Jovita Williamson am2 Long Guzman jp3 Corrections: (The following items were deleted from the chart) 11:00 10:59 LMP 08/17/2019 [facility]
--- NOTE | 2019-09-16 12:13 | RAD REPORT ---
EXAM DESCRIPTION: RAD - Ankle Right 3 View - 09/16/2019 11:55 am CLINICAL HISTORY: Right ankle pain FINDINGS: No fracture or dislocation is seen. Mild lateral soft tissue swelling
[2019-09-16 12:44] VITALS: TEMP 97.2; O2SAT 98
== END 2019-09-16 12:38 | disposition home or self-care (01) ==
LOC: ER 10:45
DX: S93.401A Sprain of unspecified ligament of right ankle, initial encounter (principal); X50.1XXA Overexertion from prolonged static or awkward postures, initial encounter; Y93.9 Activity, unspecified; Y92.007 Garden or yard of unspecified non-institutional (private) residence as the place of occurrence of the external cause; F34.1 Dysthymic disorder
CPT/HCPCS: 99283

== ENCOUNTER 2024-02-17 18:48 | Emergency (ER) | payer OTHER ==
[2024-02-17] MEDS ORDERED: HYDROCODONE/APAP 10/325 TAB ONE (19:21)
[2024-02-17] MEDS ORDERED: KETOROLAC 30 MG/ML INJ ONE (19:21)
[2024-02-17] MEDS ORDERED: HYDROCODONE/APAP 5/325 MG TAB ONE (19:24)
--- NOTE | 2024-02-17 20:26 | RAD REPORT ---
EXAM: Knee Right 3 View HISTORY: [facility] Bed Name: [id number] COMPARISON: None TECHNIQUE: 3 views of the left knee were obtained. FINDINGS: [id number] knee effusion is seen. There is no evidence of acute fracture or dislocat ion. No significant degenerative changes are seen. Enthesopathy at the quadriceps tendon attachment. No soft tissue swelling or other soft tissue abnormality is present. IMPRESSION: No evidence of acute osseous abnormality.
--- NOTE | 2024-02-17 20:31 | ER ---
Nurse's Notes [facility] Name: Claudine Lerner Age: 48 yrs Sex: Female : 1975 Arrival Date: 02/17/2024 Time: 18:48 Bed 11 Private MD: Diagnosis: Sprain of other specified parts of right knee Presentation: 02/16 19:14 Chief complaint: Patient states: Right knee pain. Pt states that today she was at work cm10 and almost slipped and fell and felt something pop in her right knee. Pt states that she is unable to put weight on her right leg. Coronavirus screen: Client denies travel out of the [place] in the last 14 days. Ebola Screen: Patient denies travel to an Ebola-affected area in the 21 days before illness onset. No symptoms or risks identified at this time. Initial Sepsis Screen: Does the patient meet any 2 criteria? No. Patient's initial sepsis screen is negative. Does the patient have a suspected source of infection? No. Patient's initial sepsis screen is negative. Risk Assessment: Do you want to hurt yourself or someone else? Patient reports no desire to harm self or others. Onset of symptoms was February 17, 2024. 19:14 Method Of Arrival: Ambulatory cm10 19:14 Acuity: GUNNER 4 cm10 Triage Assessment: 19:16 General: Appears in no apparent distress. uncomfortable, Behavior is calm, cooperative. cm10 Pain: Complains of pain in right knee Pain radiates to right leg Pain currently is 8 out of 10 on a pain scale. Neuro: No deficits noted. Level of Consciousness is awake, alert, obeys commands, Oriented to person, place, time, situation, Appropriate for age. Respiratory: No deficits noted. Airway is patent Respiratory effort is even, unlabored, Respiratory pattern is regular, symmetrical. 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 - Infectious Disease History:: Denies. - Social history:: Smoking status: Patient denies any tobacco usage or history of. Screenin:34 [facility] ED Fall Risk Assessment (Adult) History of falling in the last 3 months, me1 including since admission Yes- single mechanical fall (1 pt) Confusion or Disorientation No (0 pts) Intoxicated or Sedated No (0 pts) Impaired Gait No (0 pts) Mobility Assist Device Used No (0 pt) Altered Elimination No (0 pt) Score/Fall Risk Level 0 - 2 = Low Risk Maintained a safe environment, Provided non-skid footwear, Hourly rounding (assess needs \T\ fall precautionary measures) done. Abuse screen: Denies threats or abuse. Nutritional screening: No deficits noted. Tuberculosis screening: No symptoms or risk factors identified. Assessment: 19:34 General: Appears uncomfortable, well groomed, well developed, well nourished, Behavior me1 is calm, cooperative, appropriate for age, Reports Right knee pain. Pt states that today she was at work and almost slipped and fell and felt something pop in her right knee. Pt states that she is unable to put weight on her right leg. Pain: Complains of pain in right leg and right knee Pain does not radiate. Pain currently is 10 out of 10 on a pain scale. Quality of pain is described as sharp, Pain began suddenly, Is continuous. Neuro: Level of Consciousness is awake, alert, obeys commands, Oriented to person, place, time, situation, Appropriate for age. Cardiovascular: Patient's skin is warm and dry. Respiratory: Airway is patent Respiratory effort is even, unlabored, Respiratory pattern is regular, symmetrical. GI: No signs and/or symptoms were reported involving the gastrointestinal system. : No signs and/or symptoms were reported regarding the genitourinary system. EENT: No signs and/or symptoms were reported regarding the EENT system. Derm: Skin is intact, is healthy with good turgor, Skin is pink, warm \T\ dry. Musculoskeletal: Reports pain in right knee. Injury Description: Right knee pain. Pt states that today she was at work and almost slipped and fell and felt something pop in her right knee. Pt states that she is unable to put weight on her right leg. 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 Vital Signs: 19:14 BP 127 / 94; Pulse 90; Resp 16; Temp 97.8; Pulse Ox 100% on R/A; Weight 80.74 kg; cm10 Height 5 ft. 3 in. ; Pain 8/10; 20:28 Pain 5/10; me1 20:28 Pain 5/10; me1 21:00 BP 125 / 88; Pulse 87; Resp 15; Pulse Ox 100% ; me1 21:55 BP 130 / 87; Pulse 78; Resp 16; Temp 98.1; Pulse Ox 100% ; me1 19:14 Body Mass Index 31.53 (80.74 kg, 160.02 cm) cm10 19:14 Pain Scale: Adult cm10 20:28 Pain Scale: Adult me1 20:28 Pain Scale: Adult me1 ED Course: 18:52 Patient arrived in ED. mr 18:55 William Knutson MD is Attending Physician. ec2 19:15 Triage completed. cm10 19:16 Arm band placed on right wrist. Patient placed in waiting room. cm10 19:21 Wound care: ice pack applied. cm10 19:34 Niya Lanza, ALIYAH is Primary Nurse. me1 19:34 Patient has correct armband on for positive identification. Bed in low position. Call me1 light in reach. Side rails up X 1. Provided Education on: POC. Verbalized understanding. . 19:34 No provider procedures requiring assistance completed. me1 20:01 Knee Right 3 View XRAY In Process Unspecified. EDMS 20:30 Socrates Pop MD is Referral Physician. ec2 21:53 Patient did not have IV access during this emergency room visit. me1 Administered Medications: 19:27 Drug: HYDROcodone-acetaminophen PO 5 mg-325 mg 2 tabs PO once Route: PO; cm10 20:28 Follow up: Pain 5/10 Adult; Response: No adverse reaction; Pain is decreased me1 19:30 Drug: Ketorolac IM 30 mg IM once Route: IM; Site: right vastus lateralis; cm10 20:28 Follow up: Pain 5/10 Adult; Response: No adverse reaction; Pain is decreased me1 Medication: 19:34 VIS not applicable for this client. me1 Outcome: 20:30 Discharge ordered by . ec2 21:53 Discharged to home ambulatory, with crutches, with family, me1 21:53 Condition: stable 21:53 Discharge instructions given to patient, Instructed on discharge instructions, follow up and referral plans. medication usage, Demonstrated understanding of instructions, follow-up care, medications, Prescriptions given X 1, 21:55 Patient left the ED. me1 Signatures: Dispatcher [employer] ED Rick Sherrie, Sal Reg mr Windy Sheridan, RN RN cm10 Niya Lanza RN RN me1 William Knutson MD MD ec2 Corrections: (The following items were deleted from the chart) 19:34 19:14 Chief complaint: Patient states: Right knee pain. Pt states that today she was at hi1 work and almost slipped and fell and felt something pop in her right knee. Pt states that she is unable to put weight on her right leg cm10
--- NOTE | 2024-02-17 20:31 | EDPHYS ---
Physician Documentation [facility] Name: Claudine Lerner Age: 48 yrs Sex: Female : 1975 Arrival Date: 02/17/2024 Time: 18:48 Bed 11 Private MD: ED Physician William Knutson HPI: 02/16 19:19 This 48 yrs old Female presents to ER via Ambulatory with complaints of Knee ec2 Pain. 19:19 Patient arrives today for evaluation of right knee pain. States that she twisted her ec2 knee and felt like something is injured internally. No fall, no other injuries. Reports she is having difficulty with weightbearing and able to put weight on it. 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 - Infectious Disease History:: Denies. - Social history:: Smoking status: Patient denies any tobacco usage or history of. ROS: 19:19 Constitutional: as per hpi ec2 Exam: 19:19 Constitutional: GEN: NAD Head: atraumatic Eyes: EOMI Ears: External ears are ec2 normal. CV: regular rate LUNGS: no respiratory distress ABD: non-distended SKIN: no evidence of rashes MSK: R knee effusion, ttp, good rom Vital Signs: 19:14 BP 127 / 94; Pulse 90; Resp 16; Temp 97.8; Pulse Ox 100% on R/A; Weight 80.74 kg; cm10 Height 5 ft. 3 in. ; Pain 8/10; 20:28 Pain 5/10; me1 20:28 Pain 5/10; me1 21:00 BP 125 / 88; Pulse 87; Resp 15; Pulse Ox 100% ; me1 21:55 BP 130 / 87; Pulse 78; Resp 16; Temp 98.1; Pulse Ox 100% ; me1 19:14 Body Mass Index 31.53 (80.74 kg, 160.02 cm) cm10 19:14 Pain Scale: Adult cm10 20:28 Pain Scale: Adult me1 20:28 Pain Scale: Adult me1 MDM: 19:10 Patient medically screened. ec2 19:19 Data reviewed: vital signs. ED course: Patient arrives today for evaluation of right ec2 knee pain. Examination remarkable for knee findings as above. Will obtain radiograph. Suspect ligamentous injury, additionally considered fracture as well as contusion, doubt dvt, cellulitis. . 20:30 ED course: Radiograph shows no fracture. Will discharge home, presentation consistent ec2 with ligamentous injury. Return precautions given.. 02/16 19:18 Order name: Knee Right 3 View XRAY; Complete Time: 20:30 cm10 02/16 19:18 Order name: Ice pack; Complete Time: 19:21 cm10 02/16 19:24 Order name: Knee Immobilizer; Complete Time: 20:28 ec2 02/16 19:24 Order name: Crutches; Complete Time: 21:48 ec2 Administered Medications: 19:27 Drug: HYDROcodone-acetaminophen PO 5 mg-325 mg 2 tabs PO once Route: PO; cm10 20:28 Follow up: Pain 5/10 Adult; Response: No adverse reaction; Pain is decreased id1 19:30 Drug: Ketorolac IM 30 mg IM once Route: IM; Site: right vastus lateralis; cm10 20:28 Follow up: Pain 5/10 Adult; Response: No adverse reaction; Pain is decreased id1 Disposition Summary: 02/17/24 20:30 Discharge Ordered Notes: Location: Home ec2 Condition: Stable ec2 Diagnosis - Sprain of other specified parts of right knee ec2 Followup: ec2 - With: Socrates Pop MD - When: - Reason: Recheck today's complaints Discharge Instructions: - Discharge Summary Sheet ec2 - Knee Sprain, Adult, [id number] ec2 Forms: - Medication Reconciliation Form ec2 - Antibiotic Education ec2 - Prescription Opioid Use ec2 - Patient Portal Instructions ec2 - Leadership Thank You Letter ec2 Prescriptions: - methocarbamol 500 mg Oral tablet - take 2 tablets ORAL route 4 times per day; 30 tablet; Refills: 0, Product ec2 Selection Permitted Signatures: Dispatcher [employer] Windy Kennedy RN RN cm10 William Knutson MD MD ec2 Niya Lanza RN me1
[2024-02-17 22:28] VITALS: O2SAT 100
[2024-02-17 22:37] VITALS: BP 130/87; TEMP 98.1
== END 2024-02-17 21:55 | disposition home or self-care (01) ==
LOC: ER 18:48
DX: S83.8X1A Sprain of other specified parts of right knee, initial encounter (principal)
CPT/HCPCS: 96372; 99284